=== PATIENT | male | born 1935 | race Caucasian/White ===

== ENCOUNTER 2018-12-31 12:15 | Inpatient (IN) ==
[2018-12-31] MEDS ORDERED: 0.9 % Sodium Chloride 1,000 ML ONE (15:36)
[2018-12-31] MEDS ORDERED: Naloxone 0.4 MG/ML INJ IVP PRN (15:45)
--- NOTE | 2018-12-31 15:51 | Internal Med History&Physical ---
<Nehemiah Giles P - Last Filed: 12/31/18 18:25> Date of Encounter: 12/31/18 Time of Encounter: 03:30 Internal Medicine - H&P: HPI Chief complaint: Skin Rash, altered sensorium , GLADYS Admitted From: Intrahospital Transfer Plans for Post Hospital Care: Transfer Intermediate Facility History of present illness: Mr. Hinojosa is a 83 year old male with past medical history of chronic dementia , COPD , GERD , PAD ,coronary artery disease with stent and CABG in the past, hypertension , hyperlipidemia ,referred to [facility] from [place] , he was presented there from residential facility for worsening skin rash for last few days. He has had urinary tract infection and he was taking Keflex and it was switched to Bactrim 4 days back. After taking the medication he started developing progressive generalized maculopapular rashes all over the body and he felt uncomfortable with altered sensorium for last few days. He is chronic patient of dementia so he it was difficult to take detailed history. We Will contact family members to get more detail history regarding his illness. The patient denied any ulcer inside the mouth, fever, fall, chest pain, nausea and vomiting. He has had urinary retention and >500 ml urine was drained after placement of haynes's catheter. I discussed with his family member who was present in his room, he is patient of chronic dementia but he was very well oriented and cooperative before. and has altered mental status for last few days. He does not have any history of fall , btt he has had h/o flu 1 week back and has taken Tamiflu . Past Med Surg Social Fam HX - Past Medical History Medical history: COPD, dementia, GERD, GI bleed, hyperlipidemia, hypertension, myocardial infarction, peripheral artery disease Psychiatric history: depression - Past Surgical History Surgical History: angioplasty/stent, coronary bypass (CABG) - Social History Smoking Status: Never smoker Smokeless Tobacco Status: No Alcohol use: none Drug use: none Internal Medicine - H&P: Meds Allergy/AdvReac Type Severity Reaction Status Date / Time Penicillins Allergy Gastrointestinal Verified 12/31/18 15:05 Upset topiramate [From Topamax] Allergy See Verified 12/31/18 15:05 Comments morphine AdvReac See Verified 12/31/18 15:05 Comments All Systems PM: A 10-system review of systems was performed and is negative for pertinent findings except as documented above in the HPI. - Genitourinary Genitourinary ROS male: dysuria, urinary frequency, urinary urgency - Musculoskeletal Musculoskeletal ROS IM: muscle weakness, myalgias - Integumentary Integumentary IM: erythema, rash - Neurological Neurological ROS: confusion, dizziness, weakness, no focal weakness, no frequent falls, no paresthesias, no radicular pain - Psychiatric Psychiatric: behavioral changes, confusion, memory loss - Endocrine Endocrine IM: no cold intolerance, no flushing - Allergic/Immunologic Allergic/Immunologic: no tongue swelling, no lip swelling - Constitutional Vitals: Temp Pulse Resp BP Pulse Ox 97.9 F 70 14 93/64 94 12/31/18 14:30 12/31/18 15:28 12/31/18 15:28 12/31/18 15:28 12/31/18 15:28 General appearance: Present: A&O X 2, no acute distress Exam: Gen: Patient is a oriented to time place and person, looks slightly confused might be because of chronic dementia. Chest: Diminished BS b/l, No crackles, No rales, No wheezing Heart: S1S2+ RRR No Murmurs Abd: Soft, NT, BS + No organomegaly Ext: No edema, pulses are palpable, no tenderness Neuro: No focal neuro deficits Psych: Normal mood Skin: Generalized erythematous maculopapular rash all over the body. Internal Med - H&P Results - Labs CBC & Chem 7: 12/31/18 17:10 - Assessment and Plan (1) Acute encephalopathy Current Visit: Yes Status: Acute Assessment and plan: The patient is chronic patient of dementia under medication He presented with altered sensorium, he looks confused, not well oriented to time place and person It can be due to UTI - sepsis or GLADYS , so have to rule out infective Vs Toxic - metabolic cause We have ordered electrolytes, chest x-ray, CT scan of head to rule out cause toxic metabolic (2) GLADYS (acute kidney injury) Current Visit: Yes Status: Acute Assessment and plan: Record shows normal renal function before 12/21/2018 BUN and creatinine done in [facility] was 56 and 5.22 respectively. Impaired renal function might be due to medication/Bactrim DS causing interstitial nephritis / acute tubular necrosis. We have ordered BMP, we will monitor his renal function Urine output is adequate > 500 ml Haynes catheter has been placed We have put hold nephrotoxic medication and Bactrim DS , Lisinopril USG kidney ordered Intake and output , weight daily. Iv Ceftriaxone for Infection as WBC is elevated and Urine analysis done before showed UTI . IV hydration . Spoke With Compliance Tester , will review today. (3) UTI (urinary tract infection) Current Visit: Yes Status: Acute Assessment and plan: The patient has history of urinary tract infection, he was taking Keflex and changed to bactrium 5 days back We have reordered urine analysis. White cell count elevated. IV antibiotic ceftriaxone and has been started Qualifiers: Urinary tract infection type: site unspecified Qualified Code(s): N39.0 - Urinary tract infection, site not specified (4) Drug-induced skin rash Current Visit: Yes Status: Acute Assessment and plan: The patient has history of urinary tract infection, he took Bactrim antibiotic, 24 hours after use of antibiotics he developed generalized macular papular rash all over the body may be drug-induced rash We have restarted solumedrol IV We will closely monitor progression of rash. (5) Hypertension Current Visit: Yes Status: Acute Assessment and plan: He is a patient of chronic hypertension under medication, his blood pressure is below 100 now. Qualifiers: Qualified Code(s): I10 - Essential (primary) hypertension (6) Chronic dementia Current Visit: Yes Status: Acute Assessment and plan: This patient has history of chronic dementia, he is under medication Mematine ,Donepezil We will resume his medication after confirmation. Qualifiers: Qualified Code(s): F03.90 - Unspecified dementia without behavioral disturbance (7) DVT prophylaxis Current Visit: Yes Status: Acute Assessment and plan: Heaprin SQ (8) CAD (coronary artery disease) Current Visit: Yes Status: Acute Assessment and plan: Patient has history of coronary artery disease with stent and CABG in the past He is on aspirin, Lipitor, beta amaury, we will confirm and resume the medication Qualifiers: Qualified Code(s): I25.10 - Atherosclerotic heart disease of [place] coronary artery without angina pectoris - Time Spent With Patient Total time spent is greater than 50% in coordination of care (as documented) at patient's floor/unit and/or counseling patient: <Oralia Hernandez - Last Filed: 01/01/19 01:36> Date of Encounter: 12/31/18 Internal Medicine - H&P: HPI History of present illness: Mr. Hinojosa is a 83 year old male All Systems PM: A 10-system review of systems was performed and is negative for pertinent findings except as documented above in the HPI. - Constitutional Vitals: Temp Pulse Resp BP Pulse Ox 97.5 F L 64 15 116/48 98 01/01/19 00:28 01/01/19 01:00 01/01/19 01:00 01/01/19 01:00 01/01/19 01:00 Internal Med - H&P Results - Labs CBC & Chem 7: 12/31/18 17:10 12/31/18 17:10 Labs: Short CBC 12/31/18 Range/Units 17:10 WBC 22.7 H (4.3-11.1) K/mcL Hgb 12.7 L (12.9-16.9) g/dL Hct 38.8 (37.5-50.1) % Plt Count 280 (140-400) K/mcL BMP 12/31/18 17:10 Sodium 133 L Potassium 5.3 H Chloride 104 Carbon Dioxide 15 L BUN 54 H Creatinine 4.12 H Glucose 135 H Calcium 8.3 L Cardiac Enzymes 12/31/18 12/31/18 Range/Units 17:10 19:51 Troponin I 0.06 H* 0.04 H* (< 0.04) ng/mL Liver Function 12/31/18 Range/Units 17:10 Total Bilirubin 0.3 (0.3-1.0) mg/dL AST 14 (13-39) Units/L ALT 14 (7-52) Units/L Alkaline Phosphatase 87 (34-104) Units/L Albumin 3.0 L (3.5-5.7) g/dL Urine 12/31/18 Range/Units 19:40 Urine Color Yellow (Yellow) Urine Clarity Cloudy A (Clear) Urine pH 5.5 (5.0-8.0) pH Units Ur Specific [place] 1.019 (1.010-1.025) Urine Protein 30 H (Neg-Trace) mg/dL Urine Glucose (UA) Normal (Normal) mg/dL - Impressions ITS Impressions Chest X-Ray 12/31/18 16:25 IMPRESSION: 1. Findings of congestive heart failure. 2. Bibasilar consolidation with pleural effusion, left greater than right presumably related to pulmonary edema versus infection. 3. Calcific atherosclerosis aorta. 4. Cardiomegaly. D/ / John Del Rosario / John Del Rosario Interpreting Provider: John Del Rosario Head CT 12/31/18 16:43 IMPRESSION: 1. No acute intracranial abnormality. 2. Extensive chronic small vessel ischemic white matter disease and advanced cerebral volume loss. D/ / Sergio Nelson MD / Sergio Nelson MD Interpreting Provider: Sergio Nelson MD - Assessment and Plan (1) GLADYS (acute kidney injury) Current Visit: Yes Status: Acute (2) Acute encephalopathy Current Visit: Yes Status: Acute (3) Chronic dementia Current Visit: Yes Status: Acute Qualifiers: Qualified Code(s): F03.90 - Unspecified dementia without behavioral disturbance (4) Drug-induced skin rash Current Visit: Yes Status: Acute (5) Hypertension Current Visit: Yes Status: Acute Qualifiers: Qualified Code(s): I10 - Essential (primary) hypertension (6) DVT prophylaxis Current Visit: Yes Status: Acute (7) UTI (urinary tract infection) Current Visit: Yes Status: Acute Qualifiers: Urinary tract infection type: site unspecified Qualified Code(s): N39.0 - Urinary tract infection, site not specified (8) CAD (coronary artery disease) Current Visit: Yes Status: Acute Qualifiers: Qualified Code(s): I25.10 - Atherosclerotic heart disease of [place] coronary artery without angina pectoris - Time Spent With Patient Total time spent is greater than 50% in coordination of care (as documented) at patient's floor/unit and/or counseling patient: - Attending Attestation I was present with resident during the history and exam. I discussed the case with the resident and agree with the findings and plan as documented in the resident's note
[2018-12-31] MEDS: 0.9 % Sodium Chloride 1,000 ML IVC SCH (16:40)
[2018-12-31 17:34] LABS: Hematocrit 38.8 % (37.5-50.1); Hemoglobin 12.7 g/dL (12.9-16.9); Mean Corpuscular HGB Conc 32.7 g/dL (31.6-35.5); Mean Corpuscular Hemoglobin 31.8 pg (28.0-33.3); Mean Corpuscular Volume 97.2 fL (83.0-100.0); Mean Platelet Volume 9.3 fL (9.4-12.4); Platelet Count 280 K/mcL (140-400); Red Blood Count 3.99 M/mcL (4.19-5.50); Red Cell Distribution Width 12.5 % (11.5-14.5)
[2018-12-31 17:41] LABS: INR 1.1; Prothrombin Time 12.5 Seconds (9.4-12.1)
[2018-12-31] MEDS: *HR* Heparin 5,000 UNIT/ML VIAL SQ SCH (17:57)
[2018-12-31 19:58] LABS: Albumin/Globulin Ratio 1.1 (1.1-2.2); Bilirubin,Total 0.3 mg/dL (0.3-1.0); Calcium 8.3 mg/dL (8.6-10.3); Globulin 2.7 g/dL (2.4-3.5); Magnesium 1.8 mg/dL (1.6-2.6); Potassium 5.3 mEq/L (3.5-5.1); Total Protein 5.7 g/dL (6.4-8.9)
[2018-12-31 21:02] LABS: Bilirubin,Urine Negative (Negative); Blood,Urine Negative (Negative); Clarity,Urine Cloudy (Clear); Color,Urine Yellow (Yellow); Glucose,Urine (UA) Normal (Normal); Ketones,Urine Negative (Negative); Leukocyte Esterase,Urine Negative (Negative); Nitrite,Urine Negative (Negative); PH,Urine 5.5 pH Units (5.0-8.0); Protein,Urine 30 mg/dL (Neg-Trace); Specific Gravity,Urine 1.019 (1.010-1.025); Urobilinogen,Urine Normal (Normal)
[2018-12-31 21:03] LABS: Bacteria,Urine None Seen per hpf (None-Few); Hyaline Casts,Urine None Seen per lpf (None-Few); Squamous Epithelial Cell,Urine Many per lpf (None-Few)
[2018-12-31] MEDS: MethylPREDNISolone 40 MG/ML VIAL IVP SCH (23:21)
[2019-01-01] MEDS: 0.9 % Sodium Chloride 1,000 ML IVC SCH ×2 (01:16→10:47)
[2019-01-01] MEDS: *HR* Heparin 5,000 UNIT/ML VIAL SQ SCH ×2 (05:30→17:51)
[2019-01-01 08:40] LABS: Basophils % 0.1 %; Eosinophils # 0.1 K/mcL (0.0-0.6); Eosinophils % 0.6 %; Hematocrit 39.1 % (37.5-50.1); Hemoglobin 12.8 g/dL (12.9-16.9); Immature Granulocytes % 0.5 % (0-4); Lymphocytes # 0.8 K/mcL (0.6-4.6); Lymphocytes % 5.4 %; Mean Corpuscular HGB Conc 32.7 g/dL (31.6-35.5); Mean Corpuscular Volume 97.8 fL (83.0-100.0); Mean Platelet Volume 9.5 fL (9.4-12.4); Monocytes # 0.2 K/mcL (0.0-1.3); Monocytes % 1.4 %; Neutrophils # 14.3 K/mcL (1.6-8.9); Platelet Count 270 K/mcL (140-400); Red Cell Distribution Width 12.3 % (11.5-14.5)
[2019-01-01] MEDS: cefTRIAXone 1,000 MG in Water for inj. (sterile) 20 ML 10 ML IVP SCH (08:40)
[2019-01-01] MEDS: MethylPREDNISolone 40 MG/ML VIAL IVP SCH ×3 (08:41→23:40)
[2019-01-01 09:00] LABS: Calcium 8.6 mg/dL (8.6-10.3); Potassium 4.8 mEq/L (3.5-5.1)
--- NOTE | 2019-01-01 15:21 | Nephrology Consult Note ---
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 We will continue to follow (2) Acute encephalopathy Current Visit: Yes Status: Acute (3) Chronic dementia Current Visit: Yes Status: Acute Qualifiers: Qualified Code(s): F03.90 - Unspecified dementia without behavioral disturbance History of Present Illness - Reason for Consult Consult date: 01/01/19 Acute Kidney Injury Requesting physician: Nehemiah Giles - Chief Complaint GLADYS - History of Present Illness Mr. Hinojosa is an 83 yo male with PMH of dementia, COPD, PAD, CAD, and HTN. He is admitted for skin rash, GLADYS, and AMS. He had been treated for UTI with Keflex initially and then switched to Bactrim and developed a worsening rash. Hx of questionable urinary retention as well. The patient does not offer up much of a history and answers "no" or "I don't know" to most of the questioning. It is not clear if he has any CKD at baseline as there are no prior labs available. He is on lisinopril and low dose aspirin, but no other significant renal risk with his home meds. Past Med Surg Social Fam HX - Past Medical History Medical history: COPD, dementia, GERD, GI bleed, hyperlipidemia, hypertension, myocardial infarction, peripheral artery disease Psychiatric history: depression - Past Surgical History Surgical History: angioplasty/stent, coronary bypass (CABG) - Social History Smoking Status: Never smoker Smokeless Tobacco Status: No Alcohol use: none Drug use: none Medications and Allergies Acetaminophen [Non-Aspirin Extra Strength] 500 mg PO Q4H PRN 01/01/19 [History] Artificial Tears SOLN [Akwa Tears] 1 drop BOTH EYES QAM 01/01/19 [History] Aspirin [Lo-Dose Aspirin EC] 81 mg PO QAM 01/01/19 [History] Atorvastatin [Lipitor] 40 mg PO HS 01/01/19 [History] Cimetidine HCl [Cimetidine] 200 mg PO BID 01/01/19 [History] DULoxetine 60 mg PO QAM 01/01/19 [History] Docusate [Colace] 100 mg PO BID 01/01/19 [History] Donepezil [Aricept] 10 mg PO HS 01/01/19 [History] FentaNYL PATCH [Duragesic] 50 mcg TD Q72H 01/01/19 [History] Gabapentin [Neurontin] 300 mg PO QAM 01/01/19 [History] Gabapentin [Neurontin] 600 mg PO HS 01/01/19 [History] Lisinopril [Zestril] 10 mg PO DAILY 01/01/19 [History] Memantine HCl [Memantine HCl ER] 28 mg PO QAM 01/01/19 [History] Multivit,Th Iron,Other Min [Therems-M] 1 each PO QAM 01/01/19 [History] Nitroglycerin [Nitrostat] 0.4 mg SL Q5-10MIN PRN MDD X3 01/01/19 [History] OxyCODONE/APAP 10 1 tab PO QID 01/01/19 [History] Pantoprazole Sodium [Protonix] 40 mg PO QAM 01/01/19 [History] Polyethylene Glycol 3350 17 gm PO QAM 01/01/19 [History] Vitamin D3 1 tab PO HS 01/01/19 [History] amLODIPine [Norvasc] 5 mg PO DAILY 01/01/19 [History] Allergy/AdvReac Type Severity Reaction Status Date / Time Penicillins Allergy Gastrointestinal Verified 12/31/18 15:05 Upset sulfamethoxazole Allergy Rash Verified 01/01/19 08:53 [From Bactrim] topiramate [From Topamax] Allergy See Verified 12/31/18 15:05 Comments trimethoprim [From Bactrim] Allergy Rash Verified 01/01/19 08:53 morphine AdvReac See Verified 12/31/18 15:05 Comments Review of Systems ROS unobtainable: due to mental status Exam - Vital Signs Vital signs: Initial Vital Signs Temp Pulse Resp BP Pulse Ox 97.9 F 68 14 120/50 94 12/31/18 14:30 12/31/18 14:30 12/31/18 14:30 12/31/18 14:30 12/31/18 14:30 Vital Signs - Last 8 Hours Temp Pulse Resp BP Pulse Ox 01/01/19 14:18 79 16 135/58 94 01/01/19 13:06 84 17 131/65 95 01/01/19 12:36 75 12 135/58 96 01/01/19 11:30 71 12 120/63 94 01/01/19 11:14 98.4 F 01/01/19 10:49 68 01/01/19 10:00 70 14 125/61 94 01/01/19 08:22 98.1 F 01/01/19 08:00 71 14 116/54 97 Intake and Output 12/31/18 01/01/19 01/01/19 23:59 07:59 15:59 Intake Total 25 / 25 1000 / 1000 1120 / 1120 Output Total 1000 / 1000 450 / 450 725 / 725 Balance -975 / -975 550 / 550 395 / 395 Intake: IV Fluids 1000 / 1000 1120 / 1120 0.9 % Sodium Chloride 1,000 ML 1000 / 1000 1120 / 1120 @ 50 mls/hr IVC .Q20H [facility] Rx#: [id number] Oral 25 / 25 Output: Catheter 1000 / 1000 450 / 450 725 / 725 Other: Weight 91.3 kg Blood Glucose* 115 120 Patient Weight 01/01/19 23:59 Weight 91.3 kg - General Appearance General appearance: well-developed, well-nourished EENT: ATNC, mucous membranes dry Neck: supple Respiratory: clear Cardiology: no edema, regular rate, regular rhythm Gastrointestinal: normoactive bowel sounds, no tenderness Integumentary: rash (diffuse maculopapular rash), warm and dry Neurologic: no focal deficit, confused Musculoskeletal: no cyanosis, no clubbing Psychiatric: cooperative Results - Lab Results 01/01/19 08:12 01/01/19 08:12 Most recent lab results Calcium 8.6 mg/dL (8.6-10.3) 01/01/19 08:12 Magnesium 1.8 mg/dL (1.6-2.6) 12/31/18 17:10 Consult Discharge Plan - Plan Referrals: NONE,PCP [Primary Care Provider] -
[2019-01-01] MEDS ORDERED: Saline Nasal Spray 44 ML BOTTLE NS PRN (15:55)
[2019-01-01] MEDS: *HR* HYDROcodone/Acet 5/325 mg TABLET PO PRN (18:12)
--- NOTE | 2019-01-01 18:38 | Internal Med Progress Note ---
Hospitalist Progress Note - Encounter Date of Encounter: 01/01/19 Time of Encounter: 11:00 - Subjective Interval History: Patient with diffuse rash but no acute events overnight - Exam Vitals: Temp Pulse Resp BP Pulse Ox 98.4 F 78 15 125/59 94 01/01/19 15:25 01/01/19 15:14 01/01/19 15:14 01/01/19 15:14 01/01/19 15:14 Exam: Gen.: Nonacute distress, alert and oriented 3 ENT: Mucosal membranes moist Respiratory: Lungs are clear to auscultation bilaterally without any wheezing rhonchi or rales Cardiovascular: Normal S1 and S2 regular rate rhythm no murmurs rubs or gallops Abdomen: Soft, nontender and nondistended with positive bowel sounds Extremities: No lower extremity edema Skin: Diffuse rash throughout his body - Assessment and Plan (1) Drug-induced skin rash Current Visit: Yes Status: Acute Assessment and Plan: The patient has history of urinary tract infection, he took Bactrim antibiotic, 24 hours after use of antibiotics he developed generalized macular papular rash all over the body Suspect drug-induced rash Continue Solu-Medrol IV Will closely monitor progression of rash. (2) GLADYS (acute kidney injury) Current Visit: Yes Status: Acute Assessment and Plan: Renal function improving Nephrology following and appreciate recommendations (3) Acute encephalopathy Current Visit: Yes Status: Acute Assessment and Plan: Resolved as patient appears to be back to his baseline dementia (4) Chronic dementia Current Visit: Yes Status: Acute Assessment and Plan: Continue home dose Mematine ,Donepezil (5) Hypertension Current Visit: Yes Status: Acute Assessment and Plan: Continue home medications (6) UTI (urinary tract infection) Current Visit: Yes Status: Acute Assessment and Plan: The patient has history of urinary tract infection, he was taking Keflex and changed to bactrium 5 days back Continue IV ceftriaxone (7) CAD (coronary artery disease) Current Visit: Yes Status: Acute Assessment and Plan: Patient has history of coronary artery disease with stent and CABG in the past Continue aspirin, Lipitor, beta amaury, we will confirm and resume the medication (8) DVT prophylaxis Current Visit: Yes Status: Acute Assessment and Plan: Heaprin SQ - Time Spent with Patient Total time spent is greater than 50% in coordination of care (as documented) at patient's floor/unit and/or counseling patient: Internal Medicine: Result - Labs CBC & Chem 7: 01/01/19 08:12 01/01/19 08:12 Labs: Short CBC 01/01/19 Range/Units 08:12 WBC 15.6 H (4.3-11.1) K/mcL Hgb 12.8 L (12.9-16.9) g/dL Hct 39.1 (37.5-50.1) % Plt Count 270 (140-400) K/mcL Neutrophils # 14.3 H (1.6-8.9) K/mcL BMP 12/31/18 01/01/19 17:10 08:12 Sodium 133 L 137 Potassium 5.3 H 4.8 Chloride 104 108 H Carbon Dioxide 15 L 17 L BUN 54 H 53 H Creatinine 4.12 H 2.85 H Glucose 135 H 137 H Calcium 8.3 L 8.6 Cardiac Enzymes 12/31/18 12/31/18 Range/Units 17:10 19:51 Troponin I 0.06 H* 0.04 H* (< 0.04) ng/mL Liver Function 12/31/18 Range/Units 17:10 Total Bilirubin 0.3 (0.3-1.0) mg/dL AST 14 (13-39) Units/L ALT 14 (7-52) Units/L Alkaline Phosphatase 87 (34-104) Units/L Albumin 3.0 L (3.5-5.7) g/dL Urine 12/31/18 Range/Units 19:40 Urine Color Yellow (Yellow) Urine Clarity Cloudy A (Clear) Urine pH 5.5 (5.0-8.0) pH Units Ur Specific [place] 1.019 (1.010-1.025) Urine Protein 30 H (Neg-Trace) mg/dL Urine Glucose (UA) Normal (Normal) mg/dL - ABG Interpretation ABG results: PT/INR, D-dimer PT 12.5 Seconds (9.4-12.1) H 12/31/18 17:10 - Impressions Impressions Retroperitoneum Ultrasound 01/01/19 10:30 IMPRESSION: Unremarkable ultrasound of the kidneys. No evidence of hydronephrosis. D/ / Sergio Nelson MD / Sergio Nelson MD Interpreting Provider: Sergio Nelson MD Consult Discharge Plan - Plan Referrals: NONE,PCP [Primary Care Provider] - (4) Chronic dementia Qualifiers: Qualified Code(s): F03.90 - Unspecified dementia without behavioral disturbance (5) Hypertension Qualifiers: Qualified Code(s): I10 - Essential (primary) hypertension (6) UTI (urinary tract infection) Qualifiers: Urinary tract infection type: site unspecified Qualified Code(s): N39.0 - Urinary tract infection, site not specified (7) CAD (coronary artery disease) Qualifiers: Qualified Code(s): I25.10 - Atherosclerotic heart disease of [place] coronary artery without angina pectoris
[2019-01-01] MEDS ORDERED: NON-FORMULARY MEDICATION 1 EACH EACH (Pantoprazole Sodium [Protonix] 40 MG) PO SCH (18:45)
[2019-01-01] MEDS ORDERED: *HR* FentaNYL PATCH 50 MCG PATCH TD SCH (18:45)
[2019-01-01] MEDS: Gabapentin 300 MG CAPSULE PO SCH (20:31)
[2019-01-01] MEDS: amLODIPine 5 MG TABLET PO SCH (20:32)
[2019-01-01] MEDS: Aspirin Enteric Coated 81 MG Tablet PO SCH (20:32)
[2019-01-01] MEDS ORDERED: *HR* OxyCODONE/APAP 10/325 TABLET PO PRN (21:00)
[2019-01-01 21:20] LABS: Protein/Creatinine Ratio,Urine 0.69 mg/mg (0.00-0.20); Sodium, Urine 35.3 mEq/L
[2019-01-02 05:23] LABS: Basophils % 0.1 %; Eosinophils % 0.1 %; Hemoglobin 11.9 g/dL (12.9-16.9); Immature Granulocytes % 0.9 % (0-4); Lymphocytes % 4.7 %; Mean Corpuscular HGB Conc 33.1 g/dL (31.6-35.5); Mean Corpuscular Hemoglobin 31.9 pg (28.0-33.3); Mean Corpuscular Volume 96.5 fL (83.0-100.0); Mean Platelet Volume 9.6 fL (9.4-12.4); Monocytes # 0.4 K/mcL (0.0-1.3); Neutrophils # 18.6 K/mcL (1.6-8.9); Platelet Count 299 K/mcL (140-400); Red Blood Count 3.73 M/mcL (4.19-5.50); Red Cell Distribution Width 12.4 % (11.5-14.5); Segmented Neutrophils % 92.2 %
[2019-01-02 05:28] LABS: Calcium 8.7 mg/dL (8.6-10.3); Phosphorous 2.6 mg/dL (2.7-4.5); Potassium 4.7 mEq/L (3.5-5.1)
[2019-01-02] MEDS: *HR* Heparin 5,000 UNIT/ML VIAL SQ SCH ×2 (05:51→18:00)
[2019-01-02] MEDS: 0.9 % Sodium Chloride 1,000 ML IVC SCH (05:59)
[2019-01-02] MEDS ORDERED: *HR* OxyCODONE/APAP 10/325 TABLET PO PRN (07:32)
[2019-01-02] MEDS: cefTRIAXone 1,000 MG in Water for inj. (sterile) 20 ML 10 ML IVP SCH (08:17)
[2019-01-02] MEDS: MethylPREDNISolone 40 MG/ML VIAL IVP SCH (08:17)
[2019-01-02] MEDS: Famotidine 20 MG TABLET PO SCH (08:18)
[2019-01-02] MEDS: Gabapentin 300 MG CAPSULE PO SCH ×2 (08:18→20:48)
[2019-01-02] MEDS: *HR* HYDROcodone/Acet 5/325 mg TABLET PO PRN ×2 (08:18→18:00)
[2019-01-02] MEDS: Aspirin Enteric Coated 81 MG Tablet PO SCH (08:18)
[2019-01-02] MEDS: amLODIPine 5 MG TABLET PO SCH (08:19)
[2019-01-02] MEDS: Artificial Tears SOLN 15 ML BOTTLE BOTH EYES SCH (08:19)
--- NOTE | 2019-01-02 09:23 | Internal Med Progress Note ---
Hospitalist Progress Note - Encounter Date of Encounter: 01/02/19 Time of Encounter: 11:00 - Subjective Interval History: Patient is a 83-year-old male with past medical history significant for dementia and coronary arterial disease/CABG from [facility] who recently started Bactrim for UTI who developed subsequent diffuse skin rash and also found to have acute renal failure. Patient's acute kidney injury continues to improve and mentation close to baseline dementia - Exam Vitals: Temp Pulse Resp BP Pulse Ox 98.4 F 82 18 160/75 94 01/02/19 06:55 01/02/19 06:55 01/02/19 06:55 01/02/19 06:55 01/02/19 06:55 Exam: Gen.: Nonacute distress, alert and oriented 3 ENT: Mucosal membranes moist Respiratory: Lungs are clear to auscultation bilaterally without any wheezing rhonchi or rales Cardiovascular: Normal S1 and S2 regular rate rhythm no murmurs rubs or gallops Abdomen: Soft, nontender and nondistended with positive bowel sounds Extremities: No lower extremity edema Skin: Diffuse rash throughout his body - Assessment and Plan (1) Drug-induced skin rash Current Visit: Yes Status: Acute Assessment and Plan: Patient was being treated for UTI with Bactrim and 24 hours after use developed generalized macular papular rash all over the body Suspect drug-induced rash Continue Solu-Medrol IV Will closely monitor progression of rash. (2) GLADYS (acute kidney injury) Current Visit: Yes Status: Acute Assessment and Plan: Secondary to suspected interstitial nephritis Renal function improving Serum creatinine:4.12->2.85->1.66 Nephrology following and appreciate recommendations (3) UTI (urinary tract infection) Current Visit: Yes Status: Acute Assessment and Plan: Patient was being treated for UTI with Keflex which was switched to Bactrim s uspected drug induce rash above Urine cultures are pending Continue IV ceftriaxone (4) Acute encephalopathy Current Visit: Yes Status: Acute Assessment and Plan: Resolved as patient appears to be back to his baseline dementia (5) Chronic dementia Current Visit: Yes Status: Acute Assessment and Plan: Continue home dose Mematine and Donepezil (6) Hypertension Current Visit: Yes Status: Acute Assessment and Plan: Continue home medications (7) CAD (coronary artery disease) Current Visit: Yes Status: Acute Assessment and Plan: Patient has history of coronary artery disease with stent and CABG in the past Continue aspirin, Lipitor, beta amaury, we will confirm and resume the medication DVT Prophylaxis: Subcutaneous heparin - Time Spent with Patient Total time spent is greater than 50% in coordination of care (as documented) at patient's floor/unit and/or counseling patient: Internal Medicine: Result - Labs CBC & Chem 7: 01/02/19 03:59 01/02/19 03:59 Labs: Short CBC 01/02/19 Range/Units 03:59 WBC 20.2 H (4.3-11.1) K/mcL Hgb 11.9 L (12.9-16.9) g/dL Hct 36.0 L (37.5-50.1) % Plt Count 299 (140-400) K/mcL Neutrophils # 18.6 H (1.6-8.9) K/mcL BMP 01/02/19 03:59 Sodium 138 Potassium 4.7 Chloride 110 H Carbon Dioxide 18 L BUN 44 H Creatinine 1.66 H Glucose 126 H Calcium 8.7 - ABG Interpretation ABG results: PT/INR, D-dimer PT 12.5 Seconds (9.4-12.1) H 12/31/18 17:10 - Impressions Impressions Retroperitoneum Ultrasound 01/01/19 10:30 IMPRESSION: Unremarkable ultrasound of the kidneys. No evidence of hydronephrosis. D/ / Sergio Nelson MD / Sergio Nelson MD Interpreting Provider: Sergio Nelson MD Consult Discharge Plan - Plan Referrals: NONE,PCP [Primary Care Provider] - (3) UTI (urinary tract infection) Qualifiers: Urinary tract infection type: site unspecified Qualified Code(s): N39.0 - Urinary tract infection, site not specified (5) Chronic dementia Qualifiers: Qualified Code(s): F03.90 - Unspecified dementia without behavioral disturbance (6) Hypertension Qualifiers: Qualified Code(s): I10 - Essential (primary) hypertension (7) CAD (coronary artery disease) Qualifiers: Qualified Code(s): I25.10 - Atherosclerotic heart disease of [place] coronary artery without angina pectoris
--- NOTE | 2019-01-02 14:53 | Nephrology Progress Note ---
Date of Encounter: 01/02/19 Time of Encounter: 13:55 - Assessment and Plan (1) GLADYS (acute kidney injury) Current Visit: Yes Status: Acute GLADYS in the setting of recent allergy to Bactrim and dehydration SCr down to 1.66, GFR 40 - unsure of baseline renal function as no prior labs are available Good UOP with 1850 ml yesterday Renal US unremarkable with no hydronephrosis Recommend hydration and avoidance of nephrotoxic agents if able Recommend daily weights and I/O's With significant improvement in renal function, nephrology will sign-of at this time Please contact if further assistance is needed (2) Acute encephalopathy Current Visit: Yes Status: Acute (3) Chronic dementia Current Visit: Yes Status: Acute Qualifiers: Qualified Code(s): F03.90 - Unspecified dementia without behavioral disturbance Subjective Principal diagnosis: GLADYS Interval history: Patient seen and examined. He is feeling much better today. Much more alert. Appetite is good. Denies N/V or LE edema. Objective - Vital Signs Vital signs: Vital Signs Temp Pulse Resp BP Pulse Ox 01/02/19 10:57 98.4 F 96 16 144/70 92 01/02/19 06:55 98.4 F 82 18 160/75 94 01/02/19 03:39 98.3 F 93 18 144/68 93 01/02/19 01:47 97.9 F 81 18 133/66 97 01/01/19 19:22 98.2 F 87 16 151/68 97 01/01/19 15:25 98.4 F 01/01/19 15:14 78 15 125/59 94 Intake and Output 01/01/19 01/02/19 01/02/19 23:59 07:59 15:59 Intake Total 461 / 461 419 / 419 Output Total 350 / 350 800 / 800 Balance 111 / 111 -381 / -381 Intake: IV Fluids 461 / 461 419 / 419 0.9 % Sodium Chloride 1,000 ML 461 / 461 419 / 419 @ 50 mls/hr IVC .Q20H [facility] Rx#: [id number] Output: Catheter 350 / 350 800 / 800 Other: Stool Size Moderate Large Stool Consistency soft loose Stool Color Brown # Bowel Movements 1 Weight 90.1 kg Blood Glucose* 178 Patient Weight 01/02/19 23:59 Weight 90.1 kg - General Appearance General appearance: Present: well-developed, well-nourished EENT: Present: ATNC, mucous membranes moist Neck: Present: supple Respiratory: Present: clear Cardiology: Present: no edema, regular rate, regular rhythm Gastrointestinal: Present: normoactive bowel sounds, no tenderness Integumentary: Present: warm and dry Neurologic: Present: no focal deficit Musculoskeletal: Present: no cyanosis, no clubbing Psychiatric: Present: mood/affect appropriate, cooperative - Lab 01/02/19 03:59 01/02/19 03:59 Most recent lab results Calcium 8.7 mg/dL (8.6-10.3) 01/02/19 03:59 Phosphorus 2.6 mg/dL (2.7-4.5) L 01/02/19 03:59 Magnesium 1.8 mg/dL (1.6-2.6) 12/31/18 17:10 Urine Creatinine 85 mg/dL 01/01/19 20:30 Urine Sodium 35.3 mEq/L 01/01/19 20:30 Urine Total Protein 59 mg/dL (1-14) H 01/01/19 20:30 Consult Discharge Plan - Plan Referrals: NONE,PCP [Primary Care Provider] -
[2019-01-02] MEDS: predniSONE 20 MG TABLET PO SCH (17:59)
[2019-01-03] MEDS: 0.9 % Sodium Chloride 1,000 ML IVC SCH (00:16)
[2019-01-03 04:56] LABS: Basophils % 0.2 %; Eosinophils % 0.3 %; Hematocrit 33.9 % (37.5-50.1); Hemoglobin 11.5 g/dL (12.9-16.9); Immature Granulocytes % 0.5 % (0-4); Lymphocytes % 7.9 %; Mean Corpuscular HGB Conc 33.9 g/dL (31.6-35.5); Mean Corpuscular Hemoglobin 32.4 pg (28.0-33.3); Mean Corpuscular Volume 95.5 fL (83.0-100.0); Mean Platelet Volume 9.6 fL (9.4-12.4); Monocytes # 0.5 K/mcL (0.0-1.3); Monocytes % 3.6 %; Neutrophils # 11.5 K/mcL (1.6-8.9); Platelet Count 259 K/mcL (140-400); Red Blood Count 3.55 M/mcL (4.19-5.50); Red Cell Distribution Width 12.6 % (11.5-14.5); Segmented Neutrophils % 87.5 %
[2019-01-03] MEDS: *HR* Heparin 5,000 UNIT/ML VIAL SQ SCH (05:53)
[2019-01-03 06:54] LABS: BUN/Creatinine Ratio 32 (6-26); Blood Urea Nitrogen 39 mg/dL (8-23); Carbon Dioxide 20 mEq/L (23-29); Chloride 110 mEq/L (98-107); Glucose 129 mg/dL (70-105); Osmolality,Calculated 297 (280-300); Potassium 4.8 mEq/L (3.5-5.1); Sodium 138 mEq/L (136-145); eGFR For Non-African Americans 57 (> 60)
[2019-01-03] MEDS: Gabapentin 300 MG CAPSULE PO SCH (08:23)
[2019-01-03] MEDS: *HR* HYDROcodone/Acet 5/325 mg TABLET PO PRN (08:23)
[2019-01-03] MEDS: amLODIPine 5 MG TABLET PO SCH (08:24)
[2019-01-03] MEDS: Famotidine 20 MG TABLET PO SCH (08:24)
[2019-01-03] MEDS: cefTRIAXone 1,000 MG in Water for inj. (sterile) 20 ML 10 ML IVP SCH (08:24)
[2019-01-03] MEDS: predniSONE 20 MG TABLET PO SCH (08:24)
[2019-01-03] MEDS: Aspirin Enteric Coated 81 MG Tablet PO SCH (08:26)
[2019-01-03] MEDS: Artificial Tears SOLN 15 ML BOTTLE BOTH EYES SCH (08:31)
[2019-01-03 11:36] VITALS: BP 159/69
--- NOTE | 2019-01-03 14:58 | Discharge Summary ---
Orders not resulted at time of discharge: Pending orders 12/31/18 19:51 Culture,Blood [BC] Stat Date of Encounter: 01/03/19 Time of Encounter: 11:00 - Discharge Diagnosis (1) Drug-induced skin rash Priority: Primary Status: Acute (2) GLADYS (acute kidney injury) Priority: Primary Status: Acute (3) UTI (urinary tract infection) Priority: Primary Status: Acute Qualifiers: Urinary tract infection type: site unspecified Qualified Code(s): N39.0 - Urinary tract infection, site not specified; R31.9 - Hematuria, unspecified (4) Acute encephalopathy Priority: Primary Status: Acute (5) Chronic dementia Priority: Secondary Status: Acute Qualifiers: Qualified Code(s): F03.90 - Unspecified dementia without behavioral disturbance (6) Hypertension Priority: Secondary Status: Acute Qualifiers: Qualified Code(s): I10 - Essential (primary) hypertension (7) CAD (coronary artery disease) Priority: Secondary Status: Acute Qualifiers: Qualified Code(s): I25.10 - Atherosclerotic heart disease of [place] coronary artery without angina pectoris Hospital course: Patient is 83-year-old male with past medical history significant for dementia, COPD, GERD, PAD, CAD with CABG/stents, hypertension and hyperlipidemia who presented from [facility] due to diffuse skin rash. Apparently patient developed diffuse rash after switching from Keflex to Bactrim for UTI. He was transferred to the [facility] for further evaluation and management. On arrival patient was also found to be in acute renal failure. Patients renal failure improved with IV fluids and rash resolved after treatment with IV Solu-Medrol. Treatment for UTI was continued with IV ceftriaxone. Patient is medically stable and will be discharged to correction facility to complete a 3 day course of Cipro. - Time Spent with Patient Total time spent providing and/or coordinating discharge services: Time spent: Less than 30 minutes - Discharge Medications Prescriptions: New Ciprofloxacin [Cipro] 250 mg PO BID 3 Days tablet predniSONE [PredniSONE] 40 mg PO BIDWM 5 Days tablet Continue Pantoprazole Sodium [Protonix] 40 mg PO QAM Memantine HCl [Memantine HCl ER] 28 mg PO QAM Lisinopril [Zestril] 10 mg PO DAILY FentaNYL PATCH [Duragesic] 50 mcg TD Q72H Duloxetine HCl [Cymbalta] 60 mg PO QAM Donepezil [Aricept] 10 mg PO HS Docusate [Colace] 100 mg PO BID Atorvastatin [Lipitor] 40 mg PO HS Artificial Tears SOLN [Akwa Tears] 1 drop BOTH EYES QAM amLODIPine [Norvasc] 5 mg PO DAILY Polyethylene Glycol 3350 [MiraLAX] 17 gm PO QAM Cimetidine HCl [Cimetidine] 200 mg PO BID Aspirin [Lo-Dose Aspirin EC] 81 mg PO QAM Acetaminophen [Non-Aspirin Extra Strength] 500 mg PO Q4H PRN PRN Reason: Pain Cholecalciferol (Vitamin D3) [Vitamin D3] 1,000 unit PO HS Multivit,Th Iron,Other Min [Therems-M] 1 each PO QAM Nitroglycerin [Nitrostat] 0.4 mg SL Q5-10MIN PRN MDD X3 PRN Reason: Chest Pain Hydrocortisone 1% CREAM [Cortaid] 1 appl TP 3-4XD PRN PRN Reason: Rash Gabapentin [Neurontin] 600 mg PO HS #5 tablet Gabapentin [Neurontin] 300 mg PO QAM #5 capsule OxyCODONE/APAP 10/325 [Percocet 10/325 MG] 1 each PO QID 5 Days #20 tablet Home Medications: Acetaminophen [Non-Aspirin Extra Strength] 500 mg PO Q4H PRN 01/01/19 [History] Artificial Tears SOLN [Akwa Tears] 1 drop BOTH EYES QAM 01/01/19 [History] Aspirin [Lo-Dose Aspirin EC] 81 mg PO QAM 01/01/19 [History] Atorvastatin [Lipitor] 40 mg PO HS 01/01/19 [History] Cholecalciferol (Vitamin D3) [Vitamin D3] 1,000 unit PO HS 01/01/19 [History] Cimetidine HCl [Cimetidine] 200 mg PO BID 01/01/19 [History] Docusate [Colace] 100 mg PO BID 01/01/19 [History] Donepezil [Aricept] 10 mg PO HS 01/01/19 [History] Duloxetine HCl [Cymbalta] 60 mg PO QAM 01/01/19 [History] FentaNYL PATCH [Duragesic] 50 mcg TD Q72H 01/01/19 [History] Hydrocortisone 1% CREAM [Cortaid] 1 appl TP 3-4XD PRN 01/01/19 [History] Lisinopril [Zestril] 10 mg PO DAILY 01/01/19 [History] Memantine HCl [Memantine HCl ER] 28 mg PO QAM 01/01/19 [History] Multivit,Th Iron,Other Min [Therems-M] 1 each PO QAM 01/01/19 [History] Nitroglycerin [Nitrostat] 0.4 mg SL Q5-10MIN PRN MDD X3 01/01/19 [History] Pantoprazole Sodium [Protonix] 40 mg PO QAM 01/01/19 [History] Polyethylene Glycol 3350 [MiraLAX] 17 gm PO QAM 01/01/19 [History] amLODIPine [Norvasc] 5 mg PO DAILY 01/01/19 [History] Ciprofloxacin [Cipro] 250 mg PO BID 3 Days tablet 01/03/19 [Rx] Gabapentin [Neurontin] 300 mg PO QAM #5 capsule 01/03/19 [Rx] Gabapentin [Neurontin] 600 mg PO HS #5 tablet 01/03/19 [Rx] OxyCODONE/APAP 10/325 [Percocet 10/325 MG] 1 each PO QID 5 Days #20 tablet 01/03/19 [Rx] predniSONE [PredniSONE] 40 mg PO BIDWM 5 Days tablet 01/03/19 [Rx] Allergies/Adverse Reactions: Allergy/AdvReac Type Severity Reaction Status Date / Time Penicillins Allergy Gastrointestinal Verified 12/31/18 15:05 Upset sulfamethoxazole Allergy Rash Verified 01/01/19 08:53 [From Bactrim] topiramate [From Topamax] Allergy See Verified 12/31/18 15:05 Comments trimethoprim [From Bactrim] Allergy Rash Verified 01/01/19 08:53 morphine AdvReac See Verified 12/31/18 15:05 Comments Date of admission: 12/31/18 14:21 Primary care physician: PCP NONE Consults: 12/31/18 18:19 Consult to Nephrology [CONS] Routine Consulting Provider: Kidney Sienna/ISABEL/KAYLIN/KEENAN Reason for Consult: GLADYS Call Completed: Yes 01/02/19 07:45 Consult to Datastage Architect [CONS] Routine Reason for SW Consult: rtn to four seasons - Constitutional Vitals: Temp Pulse Resp BP Pulse Ox 98.0 F 75 18 159/69 95 01/03/19 11:32 01/03/19 11:32 01/03/19 11:32 01/03/19 11:32 01/03/19 11:32 General appearance: Present: A&O X 2, no acute distress Exam: Gen.: Nonacute distress, alert and oriented 3 Skin: Diffuse rash throughout his body has resolved - Patient Status Disposition: Transfer SNF - Discharge Instructions Follow Up With: NONE,PCP [Primary Care Provider] -
--- NOTE | 2019-01-03 14:58 | Physician Discharge Referral ---
- Diagnosis (1) Drug-induced skin rash Status: Acute (2) GLADYS (acute kidney injury) Status: Acute (3) UTI (urinary tract infection) Status: Acute (4) Acute encephalopathy Status: Acute (5) Chronic dementia Status: Acute (6) Hypertension Status: Acute (7) CAD (coronary artery disease) Status: Acute - Transfer Medications Prescriptions: Gabapentin [Neurontin] 600 mg PO HS #5 tablet Gabapentin [Neurontin] 300 mg PO QAM #5 capsule OxyCODONE/APAP 10/325 [Percocet 10/325 MG] 1 each PO QID 5 Days #20 tablet Home Medications: Acetaminophen [Non-Aspirin Extra Strength] 500 mg PO Q4H PRN 01/01/19 [History] Artificial Tears SOLN [Akwa Tears] 1 drop BOTH EYES QAM 01/01/19 [History] Aspirin [Lo-Dose Aspirin EC] 81 mg PO QAM 01/01/19 [History] Atorvastatin [Lipitor] 40 mg PO HS 01/01/19 [History] Cholecalciferol (Vitamin D3) [Vitamin D3] 1,000 unit PO HS 01/01/19 [History] Cimetidine HCl [Cimetidine] 200 mg PO BID 01/01/19 [History] Docusate [Colace] 100 mg PO BID 01/01/19 [History] Donepezil [Aricept] 10 mg PO HS 01/01/19 [History] Duloxetine HCl [Cymbalta] 60 mg PO QAM 01/01/19 [History] FentaNYL PATCH [Duragesic] 50 mcg TD Q72H 01/01/19 [History] Hydrocortisone 1% CREAM [Cortaid] 1 appl TP 3-4XD PRN 01/01/19 [History] Lisinopril [Zestril] 10 mg PO DAILY 01/01/19 [History] Memantine HCl [Memantine HCl ER] 28 mg PO QAM 01/01/19 [History] Multivit,Th Iron,Other Min [Therems-M] 1 each PO QAM 01/01/19 [History] Nitroglycerin [Nitrostat] 0.4 mg SL Q5-10MIN PRN MDD X3 01/01/19 [History] Pantoprazole Sodium [Protonix] 40 mg PO QAM 01/01/19 [History] Polyethylene Glycol 3350 [MiraLAX] 17 gm PO QAM 01/01/19 [History] amLODIPine [Norvasc] 5 mg PO DAILY 01/01/19 [History] Ciprofloxacin [Cipro] 250 mg PO BID 3 Days tablet 01/03/19 [Rx] Gabapentin [Neurontin] 300 mg PO QAM #5 capsule 01/03/19 [Rx] Gabapentin [Neurontin] 600 mg PO HS #5 tablet 01/03/19 [Rx] OxyCODONE/APAP 10/325 [Percocet 10/325 MG] 1 each PO QID 5 Days #20 tablet 01/03/19 [Rx] predniSONE [PredniSONE] 40 mg PO BIDWM 5 Days tablet 01/03/19 [Rx] Allergies/Adverse Reactions: Allergy/AdvReac Type Severity Reaction Status Date / Time Penicillins Allergy Gastrointestinal Verified 12/31/18 15:05 Upset sulfamethoxazole Allergy Rash Verified 01/01/19 08:53 [From Bactrim] topiramate [From Topamax] Allergy See Verified 12/31/18 15:05 Comments trimethoprim [From Bactrim] Allergy Rash Verified 01/01/19 08:53 morphine AdvReac See Verified 12/31/18 15:05 Comments - Respiratory Orders Smoking Cessation: Smoking cessation has been advised. For more information, call the [place] Tobacco Quit Line at 9-437-CWPZ-NOW. CERTIFICATION: I certify that the transfer of the above named patient to an Extended Care Facility is necessary for the continuing treatment of the diagnosis listed. The above information is true and accurate reflection of patient's current condition. Confidential - Redisclosure prohibited without a patient's written consent.
--- NOTE | 2019-01-04 09:54 | Electrocardiograph Report ---
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
== END 2019-01-03 16:30 | DRG 606 ==
LOC: ICNU 14:21 → SUATTDRO 14:21 → 2ANU 01-01 16:52
PROVIDERS: ADMIT Internal Medicine Nephrology; ATTEND Hospitalist